=== PATIENT | male | born 1970 | race Hispanic/Latino ===

== ENCOUNTER 2018-03-09 18:20 | Emergency (ER) | payer SELFPAY ==
[2018-03-09 18:32] VITALS: BP 110/66; PULSE 117; RESP 20; TEMP 98.6; O2SAT 96
--- NOTE | 2018-03-09 19:13 | ED PDOC ---
HPI: Headache Chief Complaint (Nursing): Headache Past Medical History Vital Signs: Last Vital Signs Temp 98.6 F 03/09/18 18:28 Pulse 117 H 03/09/18 18:28 Resp 20 03/09/18 18:28 BP 110/66 03/09/18 18:28 Pulse Ox 96 03/09/18 18:28 - Medical History PMH: Migraine - Surgical History Surgical History: Tonsillectomy - Allergies Allergies/Adverse Reactions: Allergies Allergy/AdvReac Type Severity Reaction Status Date / Time codeine Allergy VOMITING Verified 03/09/18 18:27 Penicillins Allergy VOMITING Verified 03/09/18 18:27 - ECG O2 Sat by Pulse Oximetry: 96 Disposition - Disposition Disposition Time: 18:59
== END 2018-03-09 19:33 | disposition left against medical advice (07) ==
LOC: H.ER 18:20
DX: R51 Headache (principal)

== ENCOUNTER 2018-03-10 08:11 | Emergency (ER) | payer OTHER ==
[2018-03-10 08:24] VITALS: BMI 25.8
--- NOTE | 2018-03-10 08:45 | ED PDOC ---
HPI: Skin/Bite Injury Time Seen by Provider: 03/10/18 08:17 Chief Complaint (Provider): Left Foot Erythema and Pain History Per: Patient History/Exam Limitations: no limitations Onset/Duration Of Symptoms: Days (x 1) Location Of Injury: Left: Foot Additional Complaint(s): 48 years old male presents to the ED with complaints of step left foot erythema associated with pain onset yesterday. Patient reports extension of pain up to groin. He denies any fever, chills, trauma, swelling or streaking. PMD: non provided Past Medical History Reviewed: Historical Data, Nursing Documentation, Vital Signs Vital Signs: Last Vital Signs Temp 97 F L 03/10/18 08:22 Pulse 107 H 03/10/18 08:22 Resp BP 124/79 03/10/18 08:22 Pulse Ox 97 03/10/18 08:54 - Medical History PMH: Migraine - Surgical History Surgical History: Tonsillectomy - Family History Family History: States: Unknown Family Hx - Allergies Allergies/Adverse Reactions: Allergies Allergy/AdvReac Type Severity Reaction Status Date / Time codeine Allergy VOMITING Verified 03/09/18 18:27 Penicillins Allergy VOMITING Verified 03/09/18 18:27 Review of Systems ROS Statement: Except As Marked, All Systems Reviewed And Found Negative Constitutional: Negative for: Fever, Chills Musculoskeletal: Positive for: Foot Pain (left foot erythema). Negative for: Other (Trauma, swelling or streaking) Skin: Positive for: Rash (left foot erythema) Physical Exam - Reviewed Nursing Documentation Reviewed: Yes Vital Signs Reviewed: Yes - Physical Exam Appears: Positive for: Non-toxic, No Acute Distress Head Exam: Positive for: ATRAUMATIC, NORMOCEPHALIC Skin: Positive for: Rash (left medial foot erythema proximately 4 cm x 3 cm) Extremity: Positive for: Normal ROM. Negative for: Calf Tenderness, Swelling - ECG O2 Sat by Pulse Oximetry: 97 (RA) Pulse Ox Interpretation: Normal Medical Decision Making Medical Decision Making: Time: 833 Initial Plan: --CMP --CBC --Blood Culture Scribe Attestation: Documented by Becki Leahy, acting as a scribe for Varinder Rangel MD Evaluated by dr. Esqueda, agrees most likely erythema multiforme Provider Scribe Attestation: All medical record entries made by the Scribe were at my direction and personally dictated by me. I have reviewed the chart and agree that the record accurately reflects my personal performance of the history, physical exam, medical decision making, and the department course for this patient. I have also personally directed, reviewed, and agree with the discharge instructions and disposition. Disposition - Clinical Impression Clinical Impression: Erythema multiforme minor - Patient ED Disposition Is Patient to be Admitted: No - Disposition Referrals: [facility] [Outside] Disposition: Routine/Home Disposition Time: 09:08 Condition: FAIR Instructions: Erythema Multiforme
[2018-03-10 09:11] LABS: BASO # 0.1 K/uL (0.0-0.2); BASO % 0.5 % (0.0-2.0); EOS % 0.1 % (0.0-4.0); HEMOGLOBIN 15.7 g/dL (12.0-18.0); LYMPH # 1.2 K/uL (1.0-4.3); LYMPH % 7.7 % (20.0-40.0); MEAN CELL VOLUME 89.3 fl (80.0-94.0); MEAN CORPUSCULAR HEMOGLOBIN 30.4 pg (27.0-31.0); MEAN PLATELET VOLUME 8.3 fl (7.2-11.7); MONO # 0.7 K/uL (0.0-0.8); MONO % 4.5 % (0.0-10.0); NEUT # 13.9 K/uL (1.8-7.0); NEUT % 87.2 % (50.0-75.0); PLATELET COUNT 218 K/uL (130-400); RBC 5.18 Mil/uL (4.40-5.90); RED CELL DISTRIBUTION WIDTH 13.8 % (11.5-14.5); WHITE BLOOD COUNT 15.9 K/uL (4.8-10.8)
[2018-03-10 09:20] LABS: CALCIUM 9.2 mg/dL (8.4-10.2); GFR AFRICAN-AMERICAN > 60; GFR NON-AFRICAN AMERICAN > 60
[2018-03-10 09:30] LABS: ALB/GLOB RATIO 1.2 (1.0-2.1); ALBUMIN 4.5 g/dL (3.5-5.0); ALT/SGPT 51 U/L (21-72); AST/SGOT 55 U/L (17-59); BLOOD UREA NITROGEN 20 mg/dl (9-20)
[2018-03-10 09:44] LABS: BANDS 1 % (0-2); LYMPHOCYTE 4 % (20-50); MONOCYTE 1 % (0-10); NEUTROPHIL 86 % (42-75); REACTIVE LYMPHOCYTES 8 % (0-0); TOTAL CELLS COUNTED 100
[2018-03-10 09:46] LABS: PLATELET ESTIMATE NORMAL (NORMAL)
[2018-03-10 09:48] VITALS: BP 122/67; PULSE 89; RESP 18; TEMP 97.4; O2SAT 100
== END 2018-03-10 09:48 | disposition home or self-care (01) ==
LOC: H.ER 08:11
DX: L51.9 Erythema multiforme, unspecified (principal); Z88.0 Allergy status to penicillin